=== PATIENT | male | born 1980 | race Caucasian/White ===

== ENCOUNTER → 2018-04-09 14:58 | Outpatient (REF) | payer BC, SELFPAY ==
[2018-04-09 20:04] LABS: ESR 10 MM/HR (0-15)
[2018-04-11 17:07] LABS: CRP, High Sensitivity 5.94 mg/L
[2018-04-12 11:43] LABS: Lyme Ab w Rflx to Lyme Confirm Negative
[2018-04-12 11:50] LABS: Hepatitis C Ab w Rflx HCV PCR Negative (NEGAT)
[2018-04-12 11:52] LABS: HIV-1/2 Ag & Ab Screen Negative (NEGAT)
== END ==
LOC: NCHCN 14:58
PROVIDERS: PCP Internal Medicine; Visit Provider Internal Medicine
DX: G51.0 Bell's palsy (principal); I10 Essential (primary) hypertension
CPT/HCPCS: 85652; 86141; 86803; 87389; 86618

== ENCOUNTER 2019-05-02 20:25 | Outpatient (REF) | payer BC, SELFPAY ==
[2019-05-02 21:02] LABS: ALT 47 U/L (16-63); Anion Gap 9.1 mmol/L (3-11); BUN 15 mg/dL (7-18); CO2 27.9 mmol/L (21.0-32.0); CREATININE 1.12 mg/dL (0.70-1.30); Calcium 9.1 mg/dL (8.5-10.1); Chloride 104 mmol/L (98-107); Glucose 165 mg/dL (70-100); LDL CHOLESTEROL 97 mg/dL (<100); Potassium 3.9 mmol/L (3.5-5.1); Sodium 141 mmol/L (136-145); TSH 1.16 uIU/mL (0.36-3.74)
== END 2019-05-02 20:45 ==
LOC: NCHCN 20:25
PROVIDERS: PCP Internal Medicine; Visit Provider Internal Medicine
DX: Z00.00 Encounter for general adult medical examination without abnormal findings (principal); Z13.220 Encounter for screening for lipoid disorders; Z13.29 Encounter for screening for other suspected endocrine disorder; Z13.228 Encounter for screening for other metabolic disorders
CPT/HCPCS: 80048; 83721; 84443; 84460

== ENCOUNTER 2019-05-13 08:27 | Outpatient (REF) | payer BC, SELFPAY ==
[2019-05-13 19:17] LABS: Hemoglobin A1C 6.2 % (4.5-6.2)
== END 2019-05-13 08:47 ==
LOC: NCHCN 08:27
PROVIDERS: PCP Internal Medicine; Visit Provider Internal Medicine
DX: R73.9 Hyperglycemia, unspecified (principal)
CPT/HCPCS: 83036

== ENCOUNTER 2020-07-25 12:16 | Outpatient (REF) | payer BC, SELFPAY ==
[2020-07-25 20:54] LABS: ALT 34 U/L (16-63); BUN 15 mg/dL (7-18); CREATININE 1.16 mg/dL (0.70-1.30); Calcium 9.3 mg/dL (8.5-10.1); Chloride 103 mmol/L (98-107); Glucose 80 mg/dL (74-106); LDL CHOLESTEROL 103 mg/dL (<100); Potassium 3.9 mmol/L (3.5-5.1); Sodium 139 mmol/L (136-145); TSH 1.44 uIU/mL (0.36-3.74)
== END 2020-07-25 12:36 ==
LOC: NCHCN 12:16
PROVIDERS: PCP Internal Medicine; Visit Provider Internal Medicine
DX: I10 Essential (primary) hypertension (principal); R73.03 Prediabetes; E66.9 Obesity, unspecified; G47.33 Obstructive sleep apnea (adult) (pediatric)
CPT/HCPCS: 80048; 83721; 84443; 84460

== ENCOUNTER 2020-11-06 12:34 | Outpatient (CLI) | payer BC, SELFPAY ==
[2020-11-06 12:39] VITALS: BP 135/85; PULSE 86; TEMP 36.9; O2SAT 95
[2020-11-06] MEDS: Normal Saline 500 ML 30 ML IV (13:02)
[2020-11-06] MEDS: Normal Saline Flush 10 ML SYR IVP (13:05)
[2020-11-06 13:09] VITALS: BP 120/80; PULSE 78; TEMP 37.5; O2SAT 95
[2020-11-06 13:32] VITALS: BP 115/81; PULSE 77; TEMP 37.4; O2SAT 95
[2020-11-06 14:02] VITALS: BP 115/78; PULSE 71; TEMP 37.1; O2SAT 95
[2020-11-06 14:25] VITALS: BP 120/79; PULSE 71; TEMP 36.9; O2SAT 95
== END 2020-11-06 12:35 | disposition home or self-care (01) ==
LOC: INF 11-12 12:34
PROVIDERS: PCP Internal Medicine; Visit Provider Family Medicine
DX: U07.1 COVID-19 (principal)
CPT/HCPCS: 96365

== ENCOUNTER 2021-08-22 17:54 | Outpatient (REF) | payer BC, SELFPAY ==
[2021-08-24 11:50] LABS: COVID-19 RT-PCR UVMMC Result Positive (Negative)
== END 2021-08-22 17:55 | disposition home or self-care (01) ==
LOC: NCHCN 17:54
PROVIDERS: PCP Internal Medicine; Visit Provider Internal Medicine
DX: Z20.822 Contact with and (suspected) exposure to COVID-19 (principal)
CPT/HCPCS: U0003

== ENCOUNTER 2022-01-30 17:34 | Outpatient (REF) | payer BC, SELFPAY ==
[2022-01-30 18:51] LABS: Anion Gap 10.5 mmol/L (3-11); BUN 16 mg/dL (7-18); CO2 27.5 mmol/L (21.0-32.0); Calcium 9.2 mg/dL (8.5-10.1); Calculated LDL 78 mg/dL (<100); Chloride 105 mmol/L (98-107); Cholesterol 171 mg/dL (<200); Glucose 90 mg/dL (74-106); HDL Cholesterol 58 mg/dL (40-60); Potassium 3.9 mmol/L (3.5-5.1); Sodium 143 mmol/L (136-145); Triglyceride 179 mg/dL (<150)
== END 2022-01-30 17:35 | disposition home or self-care (01) ==
LOC: NCHCN 17:34
PROVIDERS: PCP Internal Medicine; Visit Provider Internal Medicine
DX: Z00.00 Encounter for general adult medical examination without abnormal findings (principal); R73.03 Prediabetes; E66.9 Obesity, unspecified
CPT/HCPCS: 80048; 80061

== ENCOUNTER 2023-04-29 20:28 | Outpatient (REF) | payer BC, SELFPAY ==
[2023-04-29 21:04] LABS: Anion Gap 8.9 mmol/L (3-11); BUN 24 mg/dL (7-18); CO2 26.1 mmol/L (21.0-32.0); CREATININE 1.1 mg/dL (0.70-1.30); Calcium 9.7 mg/dL (8.5-10.1); Calculated LDL 86 mg/dL (<100); Chloride 101 mmol/L (98-107); Cholesterol 206 mg/dL (<200); Estimated GFR 84.89 (mL/min/1.73m2); Glucose 80 mg/dL (74-106); HDL Cholesterol 58 mg/dL (40-60); Potassium 5.1 mmol/L (3.5-5.1); Sodium 136 mmol/L (136-145); Triglyceride 313 mg/dL (<150)
== END 2023-04-29 20:29 | disposition home or self-care (01) ==
LOC: NCHCN 20:28
PROVIDERS: PCP Internal Medicine; Visit Provider Internal Medicine
DX: I10 Essential (primary) hypertension (principal); E78.5 Hyperlipidemia, unspecified; R73.03 Prediabetes
CPT/HCPCS: 80048; 80061

== ENCOUNTER 2024-05-27 15:48 | Outpatient (REF) | payer BC, SELFPAY ==
[2024-05-27 19:22] LABS: ALT 44 U/L (16-63); AST 39 U/L (15-37); Albumin 4.1 g/dL (3.4-5.0); Alkaline Phosphatase 57 U/L (46-116); Anion Gap 8.9 mmol/L (3-11); BUN 14 mg/dL (7-18); Bilirubin, Total 0.75 mg/dL (0.2-1.0); CO2 28.1 mmol/L (21.0-32.0); CREATININE 1.3 mg/dL (0.70-1.30); Calcium 9.9 mg/dL (8.5-10.1); Calculated LDL 86 mg/dL (<100); Chloride 101 mmol/L (98-107); Cholesterol 153 mg/dL (<200); Estimated GFR 69.04 (mL/min/1.73m2); Glucose 94 mg/dL (74-106); HDL Cholesterol 50 mg/dL (40-60); Potassium 3.2 mmol/L (3.5-5.1); Sodium 138 mmol/L (136-145); Total Protein 8.2 g/dL (6.4-8.2); Triglyceride 85 mg/dL (<150)
== END 2024-05-27 15:49 | disposition home or self-care (01) ==
LOC: NCHCN 15:48
PROVIDERS: PCP Internal Medicine; Visit Provider Internal Medicine
DX: I10 Essential (primary) hypertension (principal)
CPT/HCPCS: 80053; 80061

== ENCOUNTER 2024-07-13 09:02 | Outpatient (REF) | payer BC, SELFPAY ==
[2024-07-13 20:36] LABS: Anion Gap 10.8 mmol/L (3-11); BUN 14 mg/dL (7-18); CO2 29.2 mmol/L (21.0-32.0); CREATININE 1.2 mg/dL (0.70-1.30); Chloride 101 mmol/L (98-107); Glucose 86 mg/dL (74-106); Potassium 3.5 mmol/L (3.5-5.1); Sodium 141 mmol/L (136-145)
== END 2024-07-13 09:03 | disposition home or self-care (01) ==
LOC: NCHCN 09:02
PROVIDERS: PCP Internal Medicine; Visit Provider Internal Medicine
DX: E87.6 Hypokalemia (principal)
CPT/HCPCS: 80048

== ENCOUNTER 2025-07-13 13:43 | Outpatient (REF) | payer BC, SELFPAY ==
[2025-07-13 19:23] LABS: ALT 15 U/L (10-49); AST 22 U/L (<34); Albumin 4.6 g/dL (3.4-5.0); Alkaline Phosphatase 43 U/L (46-116); Anion Gap 7.8 mmol/L (3-11); BUN 14 mg/dL (9-23); Bilirubin, Total 1.10 mg/dL (0.2-1.2); CO2 28.2 mmol/L (20.0-31.0); Calcium 9.5 mg/dL (8.3-10.6); Chloride 103 mmol/L (98-107); Cholesterol 195 mg/dL (<200); Glucose 95 mg/dL (74-106); HDL Cholesterol 81 mg/dL (>40); Potassium 3.8 mmol/L (3.5-5.1); Sodium 139 mmol/L (136-145); Total Protein 7.8 g/dL (5.7-8.2)
== END 2025-07-13 13:44 | disposition home or self-care (01) ==
LOC: NCHCN 13:43
PROVIDERS: PCP Internal Medicine; Visit Provider Nurse Practitioner
DX: E87.6 Hypokalemia (principal)
CPT/HCPCS: 80053; 80061